=== PATIENT | male | born 1950 | race Caucasian/White ===

== ENCOUNTER 2021-08-27 06:00 | Outpatient (CLI) | payer MEDICARE, SELFPAY ==
[2021-08-27 12:50] LABS: Alanine Aminotransferase 18 U/L (0-41); Albumin Level 4.6 g/dL (3.5-5.2); Alkaline Phosphatase 87 IU/L (40-130); Anion Gap 15.1 (5-19); Aspartate Amino Transferase 25 U/L (0-40); Blood Urea Nitrogen 12 mg/dL (8-23); Calcium 9.2 mg/dL (8.5-10.5); Carbon Dioxide 26 mmol/L (22-29); Chloride 84 mmol/L (98-107); Creatine Phosphokinase 122 U/L (39-308); Globulin 2.4 g/dL (1.3-4.6); Glucose 117 mg/dL (65-115); Osmolality Calculated 253 mOsm/kg (285-295); Potassium 4.1 mmol/L (3.5-5.1); Sodium 121 mmol/L (136-145); Total Bilirubin 0.9 mg/dL (0.15-1.2)
== END 2021-08-27 06:01 | disposition home or self-care (01) ==
LOC: LAB 12-04 06:25
PROVIDERS: PCP Family Medicine; Visit Provider Family Medicine
DX: T67.5XXA Heat exhaustion, unspecified, initial encounter (principal)
CPT/HCPCS: 80053; 82550

== ENCOUNTER 2022-06-10 13:35 | Outpatient (RCR) | payer MEDICARE, SELFPAY | END 2022-06-19 23:59 | disposition home or self-care (01) | LOC: SPT 13:35 | PROVIDERS: PCP Family Medicine; Visit Provider Family Medicine | DX: H81.10 Benign paroxysmal vertigo, unspecified ear (principal) | CPT/HCPCS: 95992; 97161 ==

== ENCOUNTER → 2024-11-28 11:42 | Outpatient (BNVA) | payer MEDICARE, SELFPAY | PROVIDERS: PCP Family Medicine; Visit Provider Podiatrist Foot & Ankle Surgery | DX: M79.671 Pain in right foot (principal); M79.672 Pain in left foot; M72.2 Plantar fascial fibromatosis | CPT/HCPCS: 73630; 99204 ==